=== PATIENT | male | born 1945 | race Caucasian/White ===

== ENCOUNTER 2020-03-26 09:34 | Day surgery (SDC) | payer MEDICARE, BC ==
[~2020-03-26 09:34] MED LIST: Propofol 200 MG/20 ML SDV ONE; Sodium Chloride 0.9% 10 ML Syringe FLUSH PRN
[2020-03-26] MEDS ORDERED: Propofol 200 MG/20 ML SDV ONE (10:06)
[2020-03-26] MEDS: Sodium Chloride 0.9% 1,000 ML IV SCH (10:17)
[2020-03-26] MEDS ORDERED: ePHEDrine 50 MG/ML SDV IV ONE (10:47)
[2020-03-26] MEDS ORDERED: Propofol 200 MG/20 ML SDV IV ONE (10:47)
--- NOTE | 2020-03-26 10:51 | PCM.PN ---
- General Info Date of Service: 03/26/20 - Review of Systems Pulmonary: Reports: No Symptoms Cardiovascular: Reports: No Symptoms Gastrointestinal: Reports: No Symptoms Systems Review Comment:: 74-year-old male referred for screening colonoscopy. He states his last colonoscopy was over 10 years ago. He does think there were a couple of polyps removed at that time. Patient denies any recent changes in bowel pattern or abdominal pain. I have discussed the proposed colonoscopy with the patient. Risks such as but not limited to bleeding and GI injury reviewed. He agrees to proceed. - Patient Data Vitals - Most Recent: Last Vital Signs Temp 97.8 F 03/26/20 09:37 Pulse 57 L 03/26/20 09:37 Resp 16 03/26/20 09:37 BP 150/91 H 03/26/20 09:37 Pulse Ox 97 03/26/20 09:37 Weight - Most Recent: 99.79 kg Lab Results Last 24 Hours: Laboratory Results - last 24 hr 03/25/20 03/26/20 Range/Units 10:00 09:57 POC Glucose 152 H (74-106) mg/dl SARS-CoV-2 RNA (RT-PCR) Cancelled Med Orders - Current: Current Medications Sodium Chloride (Normal Saline) 1,000 mls @ 50 mls/hr IV ASDIRECTED JAC Last Admin: 03/26/20 10:17 Dose: 50 mls/hr Documented by: Sodium Chloride (Saline Flush) 10 ml FLUSH Q8HR PRN PRN Reason: keep vein open Discontinued Medications Propofol (Diprivan 20 Ml) Confirm Administered Dose 400 mg .ROUTE .STK-MED ONE Stop: 03/26/20 08:58 - Exam General: Alert, Oriented Lungs: Normal Respiratory Effort Cardiovascular: Regular Rate GI/Abdominal Exam: Soft Sepsis Event Note - Focused Exam Vital Signs: Vital Signs Temp Pulse Resp BP Pulse Ox 03/26/20 09:37 97.8 F 57 L 16 150/91 H 97 Date Exam was Performed: 03/26/20 Time Exam was Performed: 10:49 - Problem List Review Problem List Initiated/Reviewed/Updated: Yes - My Orders Last 24 Hours: My Active Orders 03/25/20 13:43 Resuscitation Status Routine 03/26/20 Breakfast Nothing Per Oral Diet [DIET] 03/26/20 09:30 Blood Glucose Check, Bedside [RC] UPON Peripheral IV Care [RC] . DIRECTED Sodium Chloride 0.9% [Normal Saline] 1,000 ml IV ASDIRECTED Sodium Chloride 0.9% [Saline Flush] 10 ml FLUSH Q8HR PRN Peripheral IV Insertion Adult [OM.PC] Routine 03/26/20 10:00 Patient to Empty Bladder [RC] ASDIRECTED 03/26/20 10:45 Verify Patient Consent Obtain [RC] ASDIRECTED - Assessment Assessment:: Colon cancer screening - Plan Plan:: Colonoscopy
--- NOTE | 2020-03-26 11:37 | PCM.OPNOTE ---
- General Post-Op/Procedure Note Date of Surgery/Procedure: 03/26/20 Operative Procedure(s): Colonoscopy with Polypectomy and Biopsy Findings: Multiple colon polyps including large sessile polyp at hepatic flexure Pre Op Diagnosis: + Fit test Post-Op Diagnosis: Colon Polyps Anesthesia Technique: MAC Primary Surgeon: Brooks Thakkar Pathology: Colon polyps EBL in mLs: 2 Complications: None Condition: Good
--- NOTE | 2020-03-26 15:24 | OR ---
DATE OF SURGERY: 03/26/2020 SURGEON: Brooks Thakkar MD PREOPERATIVE DIAGNOSIS: Positive FIT test. POSTOPERATIVE DIAGNOSIS: Colon polyps. OPERATION PERFORMED: Colonoscopy with polypectomy and biopsy. INDICATIONS FOR SURGERY: This 74-year-old male comes for colonoscopy. He was recently noted to have a positive FIT test and it has been more than 10 years since his last colonoscopy. FINDINGS: Three polyps were noted on today's exam. There was an 8 mm sessile polyp in the proximal ascending colon, a 5 mm sessile polyp in the mid ascending colon, and a 2 cm irregularly shaped but soft sessile polyp at the level of the hepatic flexure. The colon otherwise appears normal. DESCRIPTION OF PROCEDURE: The patient was taken to the operating room. He was given intravenous sedation and with him in the left lateral decubitus position, digital rectal exam was performed showing no rectal masses. The Olympus colonoscope was inserted into the rectum. Retroflexed examination of the rectal canal is performed. The scope was then carefully advanced under direct visualization through the entire length of the colon until the cecum was reached. Cecal acquisition is confirmed by noting the normal internal cecal anatomy including the appendiceal orifice and ileocecal valve. The light was also noted to transilluminate the abdominal wall in the right lower quadrant. After examining the cecum, the scope was slowly withdrawn and the polyps in the ascending colon were identified. These were removed with cautery snare and retrieved and submitted for pathology. Further withdrawal of the scope identified the large polyp at the hepatic flexure. This was sessile in nature and because of its relatively large size, it was felt that this would require advanced polypectomy techniques to remove this safely. Anticipating the need for this, random biopsies with cold biopsy forceps were taken of this polyp and tattoos are placed in the mucosa of the colon near the location of this large polyp. The scope was continued to be slowly withdrawn re-examining the remaining colonic segments and when the entire colon and rectum had been fully examined, the scope was removed and the patient was taken from the operating room in satisfactory condition. ESTIMATED BLOOD LOSS: 2 mL. COMPLICATIONS: None. PROGNOSIS: Good. /[id number]/MODL
== END 2020-03-26 12:46 | disposition home or self-care (01) ==
LOC: KA.SDS 09:34
PROVIDERS: ATTEND Surgery
DX: D12.2 Benign neoplasm of ascending colon (principal); D12.3 Benign neoplasm of transverse colon; E11.9 Type 2 diabetes mellitus without complications; E78.5 Hyperlipidemia, unspecified; E03.9 Hypothyroidism, unspecified; E55.9 Vitamin D deficiency, unspecified; N52.9 Male erectile dysfunction, unspecified; E78.00 Pure hypercholesterolemia, unspecified; Z79.890 Hormone replacement therapy; Z79.82 Long term (current) use of aspirin; Z79.84 Long term (current) use of oral hypoglycemic drugs; Z98.890 Other specified postprocedural states; Z79.899 Other long term (current) drug therapy
CPT/HCPCS: 00812; 82962; 88305; J2704; J7030

== ENCOUNTER 2021-09-04 12:06 | Observation (INO) | payer MEDICARE, BC ==
[2021-09-04] MEDS ORDERED: Ondansetron 4 MG/2 ML SDV IV PRN (12:27)
[2021-09-04] MEDS: Sodium Chloride 0.9% 1,000 ML IV SCH ×2 (13:06→21:11)
[2021-09-04] MEDS: HYDROmorphone 1 MG/ML Syringe IVPUSH PRN ×2 (13:07→21:22)
[2021-09-04] MEDS ORDERED: Glucagon,Human Recombinant 1 MG Vial IM PRN (13:18)
[2021-09-04] MEDS ORDERED: 50% Dextrose in Water 50 ML Syringe IVPUSH PRN (13:18)
--- NOTE | 2021-09-04 14:07 | CT ---
[id number] CT/CT Abdomen Pelvis WO IV EXAM: CT Abdomen Pelvis WO IV CLINICAL DATA: ACUTE KIDNEY INJURY/LEUKOCYTOSIS. COMPARISON STUDY: None. FINDINGS: Lung bases are clear. The liver, spleen, gallbladder, pancreas, and adrenal glands are unremarkable. Mild bilateral hydronephrosis without obstructing stone or mass identified. The urinary bladder is markedly distended. No bowel obstruction or inflammation. Large amount of retained stool within the colon. No lymphadenopathy, free fluid, or pneumoperitoneum. Scattered changes of spondylosis the spine. No fracture or osseous lesion. IMPRESSION: 1. Mild bilateral hydronephrosis without obstructing stone or mass. This is likely secondary to markedly distended urinary bladder. Catheterization of the patient is unable to void is recommended. Atilio King DO 09/04/21 [id number] Thank you for allowing us to participate in the care of your patient.
[2021-09-04] MEDS: Insulin Aspart 100 Units/ML 3 ML Pen SUBCUT SCH ×2 (18:17→21:12)
[2021-09-04] MEDS ORDERED: Tamsulosin 0.4 MG Cap.ER PO ONE (21:00)
[2021-09-05] MEDS: LEVOTHYROXINE 88 MCG PO SCH (06:48)
[2021-09-05 08:15] LABS: ANION GAP 14.1 mmol/L (5-15); CHLORIDE,CL 101 mmol/L (98-107); SODIUM,NA 138 mmol/L (136-145)
[2021-09-05] MEDS: Tamsulosin 0.4 MG Cap.ER PO SCH (08:29)
[2021-09-05] MEDS: Aspirin 81 MG Tab.EC PO SCH (08:29)
[2021-09-05] MEDS: Insulin Aspart 100 Units/ML 3 ML Pen SUBCUT SCH ×4 (08:29→22:13)
[2021-09-05] MEDS: ROSUVASTATIN 5 MG PO SCH (08:31)
[2021-09-05] MEDS: OMEPRAZOLE 20 MG PO SCH (08:31)
[2021-09-05] MEDS: Sodium Chloride 0.9% 1,000 ML IV SCH (10:07)
--- NOTE | 2021-09-05 12:55 | PCM.PN ---
- General Info Date of Service: 09/05/21 Subjective Update: Mr. Turcios reports feeling significant improvement in overall status and abdominal pain since admission. Tolerated breakfast well this morning. No antiemetics needed today. Denies emesis since admission. Continues to deny any cardiopulmonary symptoms. - Patient Data Vitals - Most Recent: Last Vital Signs Temp 36.4 C 09/05/21 11:00 Pulse 60 09/05/21 11:00 Resp 19 09/05/21 11:00 BP 127/79 09/05/21 11:00 Pulse Ox 94 L 09/05/21 05:50 Weight - Most Recent: 80.195 kg I&O - Last 24 Hours: Intake & Output 09/04/21 09/05/21 09/05/21 22:59 06:59 14:59 Intake Total 200 2570 Output Total 1800 1550 Balance -1600 1020 Lab Results Last 24 Hours: Laboratory Results - last 24 hr 09/04/21 09/04/21 09/04/21 Range/Units 12:56 13:15 15:00 WBC (5.00-10.00) 10^3/uL RBC (4.50-6.00) 10^6/uL Hgb (13.0-17.0) g/dL Hct (40.0-52.0) % MCV (82.0-92.0) fL MCH (27.0-31.0) pg MCHC (32.0-36.0) g/dL RDW (11.5-14.5) % Plt Count (150-400) 10^3/uL MPV (7.4-10.4) fL Immature Gran % (Auto) (0.0-5.0) % Neut % (Auto) (50.0-70.0) % Lymph % (Auto) (20.0-40.0) % [place] % (Auto) (2.0-8.0) % Eos % (Auto) (1.0-3.0) % Baso % (Auto) (0.0-1.0) % Neut # (Auto) (2.50-7.00) 10^3/uL Lymph # (Auto) (1.00-4.00) 10^3/uL [place] # (Auto) (0.10-0.80) 10^3/uL Eos # (Auto) (0.10-0.30) 10^3/uL Baso # (Auto) (0.00-0.10) 10^3/uL Immature Gran # (Auto) (0.00-0.50) 10^3/uL Sodium (136-145) mmol/L Potassium (3.5-5.1) mmol/L Chloride (98-107) mmol/L Carbon Dioxide (21.0-32.0) mmol/L Anion Gap (5-15) mmol/L BUN (7-18) mg/dL Creatinine (0.51-1.17) mg/dL Est Cr Clr Drug Dosing mL/min Estimated GFR (MDRD) mL/min Glucose (70-140) mg/dL POC Glucose (70-140) mg/dL Lactic Acid 1.9 (0.4-2.0) mmol/L Calcium (8.7-10.3) mg/dL Specimen Type Urinblad Urine Color Yellow (YELLOW) Urine Appearance Clear (CLEAR) Urine pH 5.5 (5.0-9.0) Ur Specific [place] 1.015 (1.005-1.030) Urine Protein Negative (NEGATIVE) mg/dL Urine Glucose (UA) >=1000 H (NEGATIVE) mg/dL Urine Ketones Trace H (NEGATIVE) mg/dL Urine Occult Blood Large H (NEGATIVE) Urine Nitrite Negative (NEGATIVE) Urine Bilirubin Negative (NEGATIVE) Urine Urobilinogen 0.2 (0.2-1.0) E.U./dL Ur Leukocyte Esterase Negative (NEGATIVE) Urine RBC 75-100 H (0-5) /HPF Urine WBC 0-5 (0-5) /HPF Urine Bacteria Rare (NONE TO FEW) /HPF Urine Mucus Rare H (NEGATIVE) /LPF SARS CoV-2 RNA Rapid MICHAEL Positive H (NEGATIVE) 09/04/21 09/04/21 09/05/21 Range/Units 18:15 21:03 07:24 WBC 7.39 (5.00-10.00) 10^3/uL RBC 3.83 L (4.50-6.00) 10^6/uL Hgb 11.6 L D (13.0-17.0) g/dL Hct 33.8 L (40.0-52.0) % MCV 88.3 (82.0-92.0) fL MCH 30.3 (27.0-31.0) pg MCHC 34.3 (32.0-36.0) g/dL RDW 13.0 (11.5-14.5) % Plt Count 157 (150-400) 10^3/uL MPV 9.7 (7.4-10.4) fL Immature Gran % (Auto) 0.1 (0.0-5.0) % Neut % (Auto) 73.3 H (50.0-70.0) % Lymph % (Auto) 14.5 L (20.0-40.0) % [place] % (Auto) 8.9 H (2.0-8.0) % Eos % (Auto) 2.7 (1.0-3.0) % Baso % (Auto) 0.5 (0.0-1.0) % Neut # (Auto) 5.41 (2.50-7.00) 10^3/uL Lymph # (Auto) 1.07 (1.00-4.00) 10^3/uL [place] # (Auto) 0.66 (0.10-0.80) 10^3/uL Eos # (Auto) 0.20 (0.10-0.30) 10^3/uL Baso # (Auto) 0.04 (0.00-0.10) 10^3/uL Immature Gran # (Auto) 0.01 (0.00-0.50) 10^3/uL Sodium (136-145) mmol/L Potassium (3.5-5.1) mmol/L Chloride (98-107) mmol/L Carbon Dioxide (21.0-32.0) mmol/L Anion Gap (5-15) mmol/L BUN (7-18) mg/dL Creatinine (0.51-1.17) mg/dL Est Cr Clr Drug Dosing mL/min Estimated GFR (MDRD) mL/min Glucose (70-140) mg/dL POC Glucose 177 H 214 H (70-140) mg/dL Lactic Acid (0.4-2.0) mmol/L Calcium (8.7-10.3) mg/dL Specimen Type Urine Color (YELLOW) Urine Appearance (CLEAR) Urine pH (5.0-9.0) Ur Specific [place] (1.005-1.030) Urine Protein (NEGATIVE) mg/dL Urine Glucose (UA) (NEGATIVE) mg/dL Urine Ketones (NEGATIVE) mg/dL Urine Occult Blood (NEGATIVE) Urine Nitrite (NEGATIVE) Urine Bilirubin (NEGATIVE) Urine Urobilinogen (0.2-1.0) E.U./dL Ur Leukocyte Esterase (NEGATIVE) Urine RBC (0-5) /HPF Urine WBC (0-5) /HPF Urine Bacteria (NONE TO FEW) /HPF Urine Mucus (NEGATIVE) /LPF SARS CoV-2 RNA Rapid MICHAEL (NEGATIVE) 09/05/21 09/05/21 Range/Units 07:24 08:06 WBC (5.00-10.00) 10^3/uL RBC (4.50-6.00) 10^6/uL Hgb (13.0-17.0) g/dL Hct (40.0-52.0) % MCV (82.0-92.0) fL MCH (27.0-31.0) pg MCHC (32.0-36.0) g/dL RDW (11.5-14.5) % Plt Count (150-400) 10^3/uL MPV (7.4-10.4) fL Immature Gran % (Auto) (0.0-5.0) % Neut % (Auto) (50.0-70.0) % Lymph % (Auto) (20.0-40.0) % [place] % (Auto) (2.0-8.0) % Eos % (Auto) (1.0-3.0) % Baso % (Auto) (0.0-1.0) % Neut # (Auto) (2.50-7.00) 10^3/uL Lymph # (Auto) (1.00-4.00) 10^3/uL [place] # (Auto) (0.10-0.80) 10^3/uL Eos # (Auto) (0.10-0.30) 10^3/uL Baso # (Auto) (0.00-0.10) 10^3/uL Immature Gran # (Auto) (0.00-0.50) 10^3/uL Sodium 138 (136-145) mmol/L Potassium 3.5 (3.5-5.1) mmol/L Chloride 101 (98-107) mmol/L Carbon Dioxide 26.4 (21.0-32.0) mmol/L Anion Gap 14.1 (5-15) mmol/L BUN 13 (7-18) mg/dL Creatinine 0.63 (0.51-1.17) mg/dL Est Cr Clr Drug Dosing 107.83 mL/min Estimated GFR (MDRD) > 60 mL/min Glucose 170 H (70-140) mg/dL POC Glucose 158 H (70-140) mg/dL Lactic Acid (0.4-2.0) mmol/L Calcium 8.4 L (8.7-10.3) mg/dL Specimen Type Urine Color (YELLOW) Urine Appearance (CLEAR) Urine pH (5.0-9.0) Ur Specific [place] (1.005-1.030) Urine Protein (NEGATIVE) mg/dL Urine Glucose (UA) (NEGATIVE) mg/dL Urine Ketones (NEGATIVE) mg/dL Urine Occult Blood (NEGATIVE) Urine Nitrite (NEGATIVE) Urine Bilirubin (NEGATIVE) Urine Urobilinogen (0.2-1.0) E.U./dL Ur Leukocyte Esterase (NEGATIVE) Urine RBC (0-5) /HPF Urine WBC (0-5) /HPF Urine Bacteria (NONE TO FEW) /HPF Urine Mucus (NEGATIVE) /LPF SARS CoV-2 RNA Rapid MICHAEL (NEGATIVE) Med Orders - Current: Current Medications Aspirin (Aspirin 81 Mg Tab.Ec) 81 mg PO DAILY [facility] Last Admin: 09/05/21 08:29 Dose: 81 mg Documented by: Dextrose/Water (50% Dextrose In Water 50 Ml Syringe) 50 ml IVPUSH ASDIRECTED PRN PRN Reason: Hypoglycemia Glucagon (Glucagon,Human Recombinant 1 Mg Vial) 1 mg IM ASDIRECTED PRN PRN Reason: Hypoglycemia Hydromorphone HCl (Hydromorphone 1 Mg/Ml Syringe) 0.5 mg IVPUSH Q2H PRN PRN Reason: Pain (severe 7-10) Last Admin: 09/04/21 21:22 Dose: 0.5 mg Documented by: Sodium Chloride (Normal Saline) 1,000 mls @ 150 mls/hr IV ASDIRECTED [facility] Last Admin: 09/05/21 10:07 Dose: 150 mls/hr Documented by: Insulin Aspart (Insulin Aspart 100 Units/Ml 3 Ml Pen) 0 unit SUBCUT WITHMEALSANDBED [facility]; Protocol Last Admin: 09/05/21 12:29 Dose: 1 unit Documented by: Levothyroxine 88 (Mcg TabletPtom) 88 mcg PO ACBREAKFAST [facility] Last Admin: 09/05/21 06:48 Dose: 88 mcg Documented by: Rosuvastatin 5 Mg (TabletPtom) 5 mg PO DAILY [facility] Last Admin: 09/05/21 08:31 Dose: 5 mg Documented by: Omeprazol 20 Mg Cap. (Cr Ptom) 20 mg PO DAILY [facility] Last Admin: 09/05/21 08:31 Dose: 20 mg Documented by: Ondansetron HCl (Ondansetron 4 Mg/2 Ml Sdv) 4 mg IV Q6H PRN PRN Reason: Nausea/Vomiting Tamsulosin HCl (Tamsulosin 0.4 Mg Cap.Er) 0.4 mg PO PCBREAKFAST [facility] Last Admin: 09/05/21 08:29 Dose: 0.4 mg Documented by: Discontinued Medications Tamsulosin HCl (Tamsulosin 0.4 Mg Cap.Er) 0.4 mg PO ONETIME ONE Stop: 09/04/21 21:01 Last Admin: 09/04/21 21:11 Dose: 0.4 mg Documented by: - Exam Urinary Catheter Total Time: 0Days 17Hours Physical Findings Comments:: GENERAL: Elderly white male lying in hospital bed in no acute distress. HEENT: Normocephalic, atraumatic. Conjunctiva clear. Nares patent without discharge. Mucous membranes moist. NECK: Supple, no masses. CV: Regular rate and rhythm, no murmurs, rubs, or gallops. 2+ radial pulses. PULMONARY: Normal effort, faint rhonchi in the bases, no wheezes or rales. ABDOMEN: Positive bowel sounds, soft, mild tenderness to palpation in the epigastric region, nondistended. EXTREMITIES: No edema, cyanosis, or clubbing. MUSCULOSKELETAL: Moves all extremities well. NEUROLOGICAL: No obvious deficits. DERMATOLOGIC: No rashes or suspicious lesions in exposed areas. PSYCHIATRIC: Alert, interactive, appropriate affect. Catheter draining clear-yellow urine. - Patient Data Lab Results Last 24 hrs: Laboratory Results - last 24 hr 09/04/21 09/04/21 09/04/21 Range/Units 12:56 13:15 15:00 WBC (5.00-10.00) 10^3/uL RBC (4.50-6.00) 10^6/uL Hgb (13.0-17.0) g/dL Hct (40.0-52.0) % MCV (82.0-92.0) fL MCH (27.0-31.0) pg MCHC (32.0-36.0) g/dL RDW (11.5-14.5) % Plt Count (150-400) 10^3/uL MPV (7.4-10.4) fL Immature Gran % (Auto) (0.0-5.0) % Neut % (Auto) (50.0-70.0) % Lymph % (Auto) (20.0-40.0) % [place] % (Auto) (2.0-8.0) % Eos % (Auto) (1.0-3.0) % Baso % (Auto) (0.0-1.0) % Neut # (Auto) (2.50-7.00) 10^3/uL Lymph # (Auto) (1.00-4.00) 10^3/uL [place] # (Auto) (0.10-0.80) 10^3/uL Eos # (Auto) (0.10-0.30) 10^3/uL Baso # (Auto) (0.00-0.10) 10^3/uL Immature Gran # (Auto) (0.00-0.50) 10^3/uL Sodium (136-145) mmol/L Potassium (3.5-5.1) mmol/L Chloride (98-107) mmol/L Carbon Dioxide (21.0-32.0) mmol/L Anion Gap (5-15) mmol/L BUN (7-18) mg/dL Creatinine (0.51-1.17) mg/dL Est Cr Clr Drug Dosing mL/min Estimated GFR (MDRD) mL/min Glucose (70-140) mg/dL POC Glucose (70-140) mg/dL Lactic Acid 1.9 (0.4-2.0) mmol/L Calcium (8.7-10.3) mg/dL Specimen Type Urinblad Urine Color Yellow (YELLOW) Urine Appearance Clear (CLEAR) Urine pH 5.5 (5.0-9.0) Ur Specific [place] 1.015 (1.005-1.030) Urine Protein Negative (NEGATIVE) mg/dL Urine Glucose (UA) >=1000 H (NEGATIVE) mg/dL Urine Ketones Trace H (NEGATIVE) mg/dL Urine Occult Blood Large H (NEGATIVE) Urine Nitrite Negative (NEGATIVE) Urine Bilirubin Negative (NEGATIVE) Urine Urobilinogen 0.2 (0.2-1.0) E.U./dL Ur Leukocyte Esterase Negative (NEGATIVE) Urine RBC 75-100 H (0-5) /HPF Urine WBC 0-5 (0-5) /HPF Urine Bacteria Rare (NONE TO FEW) /HPF Urine Mucus Rare H (NEGATIVE) /LPF SARS CoV-2 RNA Rapid MICHAEL Positive H (NEGATIVE) 09/04/21 09/04/21 09/05/21 Range/Units 18:15 21:03 07:24 WBC 7.39 (5.00-10.00) 10^3/uL RBC 3.83 L (4.50-6.00) 10^6/uL Hgb 11.6 L D (13.0-17.0) g/dL Hct 33.8 L (40.0-52.0) % MCV 88.3 (82.0-92.0) fL MCH 30.3 (27.0-31.0) pg MCHC 34.3 (32.0-36.0) g/dL RDW 13.0 (11.5-14.5) % Plt Count 157 (150-400) 10^3/uL MPV 9.7 (7.4-10.4) fL Immature Gran % (Auto) 0.1 (0.0-5.0) % Neut % (Auto) 73.3 H (50.0-70.0) % Lymph % (Auto) 14.5 L (20.0-40.0) % [place] % (Auto) 8.9 H (2.0-8.0) % Eos % (Auto) 2.7 (1.0-3.0) % Baso % (Auto) 0.5 (0.0-1.0) % Neut # (Auto) 5.41 (2.50-7.00) 10^3/uL Lymph # (Auto) 1.07 (1.00-4.00) 10^3/uL [place] # (Auto) 0.66 (0.10-0.80) 10^3/uL Eos # (Auto) 0.20 (0.10-0.30) 10^3/uL Baso # (Auto) 0.04 (0.00-0.10) 10^3/uL Immature Gran # (Auto) 0.01 (0.00-0.50) 10^3/uL Sodium (136-145) mmol/L Potassium (3.5-5.1) mmol/L Chloride (98-107) mmol/L Carbon Dioxide (21.0-32.0) mmol/L Anion Gap (5-15) mmol/L BUN (7-18) mg/dL Creatinine (0.51-1.17) mg/dL Est Cr Clr Drug Dosing mL/min Estimated GFR (MDRD) mL/min Glucose (70-140) mg/dL POC Glucose 177 H 214 H (70-140) mg/dL Lactic Acid (0.4-2.0) mmol/L Calcium (8.7-10.3) mg/dL Specimen Type Urine Color (YELLOW) Urine Appearance (CLEAR) Urine pH (5.0-9.0) Ur Specific [place] (1.005-1.030) Urine Protein (NEGATIVE) mg/dL Urine Glucose (UA) (NEGATIVE) mg/dL Urine Ketones (NEGATIVE) mg/dL Urine Occult Blood (NEGATIVE) Urine Nitrite (NEGATIVE) Urine Bilirubin (NEGATIVE) Urine Urobilinogen (0.2-1.0) E.U./dL Ur Leukocyte Esterase (NEGATIVE) Urine RBC (0-5) /HPF Urine WBC (0-5) /HPF Urine Bacteria (NONE TO FEW) /HPF Urine Mucus (NEGATIVE) /LPF SARS CoV-2 RNA Rapid MICHAEL (NEGATIVE) 09/05/21 09/05/21 Range/Units 07:24 08:06 WBC (5.00-10.00) 10^3/uL RBC (4.50-6.00) 10^6/uL Hgb (13.0-17.0) g/dL Hct (40.0-52.0) % MCV (82.0-92.0) fL MCH (27.0-31.0) pg MCHC (32.0-36.0) g/dL RDW (11.5-14.5) % Plt Count (150-400) 10^3/uL MPV (7.4-10.4) fL Immature Gran % (Auto) (0.0-5.0) % Neut % (Auto) (50.0-70.0) % Lymph % (Auto) (20.0-40.0) % [place] % (Auto) (2.0-8.0) % Eos % (Auto) (1.0-3.0) % Baso % (Auto) (0.0-1.0) % Neut # (Auto) (2.50-7.00) 10^3/uL Lymph # (Auto) (1.00-4.00) 10^3/uL [place] # (Auto) (0.10-0.80) 10^3/uL Eos # (Auto) (0.10-0.30) 10^3/uL Baso # (Auto) (0.00-0.10) 10^3/uL Immature Gran # (Auto) (0.00-0.50) 10^3/uL Sodium 138 (136-145) mmol/L Potassium 3.5 (3.5-5.1) mmol/L Chloride 101 (98-107) mmol/L Carbon Dioxide 26.4 (21.0-32.0) mmol/L Anion Gap 14.1 (5-15) mmol/L BUN 13 (7-18) mg/dL Creatinine 0.63 (0.51-1.17) mg/dL Est Cr Clr Drug Dosing 107.83 mL/min Estimated GFR (MDRD) > 60 mL/min Glucose 170 H (70-140) mg/dL POC Glucose 158 H (70-140) mg/dL Lactic Acid (0.4-2.0) mmol/L Calcium 8.4 L (8.7-10.3) mg/dL Specimen Type Urine Color (YELLOW) Urine Appearance (CLEAR) Urine pH (5.0-9.0) Ur Specific [place] (1.005-1.030) Urine Protein (NEGATIVE) mg/dL Urine Glucose (UA) (NEGATIVE) mg/dL Urine Ketones (NEGATIVE) mg/dL Urine Occult Blood (NEGATIVE) Urine Nitrite (NEGATIVE) Urine Bilirubin (NEGATIVE) Urine Urobilinogen (0.2-1.0) E.U./dL Ur Leukocyte Esterase (NEGATIVE) Urine RBC (0-5) /HPF Urine WBC (0-5) /HPF Urine Bacteria (NONE TO FEW) /HPF Urine Mucus (NEGATIVE) /LPF SARS CoV-2 RNA Rapid MICHAEL (NEGATIVE) Result Diagrams: 09/05/21 07:24 09/05/21 07:24 Sepsis Event Note - Evaluation Sepsis Screening Result: No Definite Risk - Focused Exam Vital Signs: Vital Signs Temp Pulse Resp BP Pulse Ox 09/05/21 11:00 36.4 C 60 19 127/79 09/05/21 05:50 63 20 128/72 94 L 09/05/21 01:40 36.9 C 64 16 102/62 94 L - Problem List Review Problem List Initiated/Reviewed/Updated: Yes - My Orders Last 24 Hours: My Active Orders 09/04/21 12:27 Patient Status [ADT] Routine Oxygen Therapy [RC] .PRN Up With Assistance [RC] DAILY Vital Signs [RC] ,,11,15,, Ondansetron [Zofran] 4 mg IV Q6H PRN Resuscitation Status Routine 09/04/21 12:30 Sodium Chloride 0.9% [Normal Saline] 1,000 ml IV ASDIRECTED 09/04/21 12:40 HYDROmorphone [Dilaudid] 0.5 mg IVPUSH Q2H PRN 09/04/21 12:50 CULTURE BLOOD [BC] Routine 09/04/21 12:56 CULTURE BLOOD [BC] Routine 09/04/21 13:18 Blood Glucose Check, Bedside [RC] WITHMEALSANDBED Dextrose 50% in Water 50 ml IVPUSH ASDIRECTED PRN Glucagon,Human Recombinant [GlucaGen] 1 mg IM ASDIRECTED PRN 09/04/21 14:15 Insert Urinary Catheter [OM.PC] Q24H 09/04/21 14:18 Urinary Catheter Assessment [RC] 09/04/21 Dinner Regular Diet [DIET] Insulin Aspart [NovoLOG] See Protocol SUBCUT WITHMEALSANDBED 09/05/21 07:30 Levothyroxine [Synthroid] 88 mcg PO ACBREAKFAST 09/05/21 09:00 Aspirin [Halfprin] 81 mg PO DAILY Omeprazole [Omeprazole] 20 mg PO DAILY Rosuvastatin 5 mg PO DAILY Tamsulosin [Flomax] 0.4 mg PO PCBREAKFAST Renew/Continue Urinary Catheter [OM.PC] DAILY 09/06/21 09:00 Renew/Continue Urinary Catheter [OM.PC] DAILY 09/07/21 09:00 Renew/Continue Urinary Catheter [OM.PC] DAILY - Plan Plan:: HPI summary: 75yoM with a history of recently diagnosed pancreatic cancer as well as history of uncontrolled DMT2 who underwent EGD/EUS with pancreatic biopsy on 09/02/21 and has subsequently noted increasing abdominal pain, nausea, and urinary difficulty. Labs obtained in clinic notable for leukocytosis, evidence of KEENAN, and UA without infectious concerns. NS 1L given along with ondansetron 4mg in clinic; despite this, he continued to feel generally poor and after discussion of management options, agreed to admission for further workup and management. Hospital course: 09/04/21: Admission COVID antigen test positive. CT abdomen/pelvis revealed hydronephrosis and markedly distended bladder. Urinary catheter placed with 1500cc output and excellent improvement in patient abdominal pain and nausea. Tamsulosin started. 09/05/21: Admission procalcitonin resulted at 0.07 (low risk). Leukocytosis and KEENAN completely resolved. Ongoing excellent improvement in abdominal pain and nausea. Catheter draining. Hospitalization problems and plan: # Acute urinary retention: Likely due to anesthesia and presumed underlying BPH. # BPH # Postrenal acute kidney injury, resolved # Hydronephrosis # Nausea, improved # Abdominal pain, resolved - Continue with urinary catheter, but clamp and begin bladder training with attempt to consider trial without catheter tomorrow - Continue tamsulosin 0.4mg daily - Discontinue IVF - Continue ondansetron 4mg q6h prn nausea # Leukocytosis, resolved: Procalcitonin low risk. CT abdomen/pelvis and UA without evidence of infection. Likely stress-induced in the setting of hydronephrosis and acute urinary retention. - Blood culture surveillance # Constipation - Start Miralax 17g daily # COVID-19 infection: Minimally symptomatic. S/p Moderna vaccine x3 with last dose 08/22/21. - Monoclonal antibody infusion today; see attestation below # Pancreatic adenocarcinoma - Coordinate with medical oncology team regarding need for delay in PET scan and appointment with Dr. Corona due to COVID isolation until 09/14/21. # DMT2: 08/07/21 A1c 8.9%, improved from 02/24/21 9.2%. - BG QIDACHS - Restart home metformin 1000mg BID - Continue insulin aspart low dose sliding scale Chronic, stable conditions: # GERD: Continue omeprazole 20mg BID. # Hypothyroidism: 08/07/21 TSH 5.402. Continue levothyroxine 88mcg daily. # HLD: 02/24/21 lipid panel TC 113/LDL 64/HLD 39. Continue rosuvastatin 5mg daily, ASA 81mg daily. Hospitalization details: # FEN: D/C IVF. Electrolytes normal. Regular diet. # PPX: Will initiate DVT ppx if staying past tomorrow. # Code status: FULL code. # Emergency contact: , Remy, who will be updated by the patient. # Disposition: Continue observation status. Anticipate discharge to home tomorrow. [facility] COVID-19 Antibody Infusion Ordering Note for Administration at [facility] Use: Treatment: This EUA is for the use of the unapproved product casirivimab/imdevimab or bamlanivimab/estevimab for the treatment of mild to moderate COVID-19 in adult and pediatric patients (12 years of age and older weighing at least 40 kg) with positive results of direct SARS-CoV-2 viral testing, and who are at high risk for progression to severe COVID-19, including hospitalization or . High risk status: Defined as patients who meet at least one of the following criteria: [x] =65 years of age [x] BMI >25 or if age 12-17, have a BMI =85th percentile for their age and g richard based on CDC growth charts [ ] [ ] Chronic kidney disease [ ] Diabetes [ ] Immunosuppressive disease or receiving immunosuppressive treatment [x] Cardiovascular disease (including congenital heart disease) or hypertension [ ] Chronic lung disease (for example, chronic obstructive pulmonary disease, asthma [[id number]], interstitial lung disease, cystic fibrosis and pulmonary hypertension) [ ] Sickle cell disease [ ] Neurodevelopmental disorders (for example, cerebral palsy) or other conditions that confer medical complexity (for example, genetic or metabolic syndromes and severe congenital anomalies) [ ] Having a medical-related technological dependence, for example, tracheostomy, gastrostomy, or positive pressure ventilation (not related to COVID-19) EUA Exclusions: Casirivimab/imdevimab or bamlanivimab/estevimab are not authorized for use in patients who are hospitalized due to COVID-19 OR who require oxygen therapy due to COVID-19 or who require an increase in baseline oxygen flow rate due to COVID-19 in those on chronic oxygen therapy due to underlying [id number] related comorbidity. [x] No known exclusions. Will check oxygen saturation at infusion appointment to ensure it is not <90%. [place] Exclusions: [ ] Symptom onset greater than 10 days; Date of COVID symptom onset: 09/04/21 [ ] Date of COVID-19 test greater than 8 days; Date of COVID test: 09/04/21 [ ]Previously received monoclonal antibody therapy to treat COVID-19 in the last 90 days Checklist: [x] Appointment with patient completed (may have been in clinic with precautions if testing was obtained while at appointment OR via telemedicine appointment) [x] Document the attestation in appointment note or this note [x] Call or have clinic staff call [facility] and talk to Candida Payton or Liliana Hay to schedule infusion [x] Sign [facility] "COVID-19 Monoclonal Antibody Order Set" and select infusion based discussion with hospital [x] [facility] "Initiation of Casirivimab/imdevimab Treatment" or "Initiation of Bamlanivimab/estevimab Treatment" or "Sotrovimab Treatment" form [x] Have staff send 1) Demographics page, 2) Copy of COVID-19 test, 3) "COVID-19 Monoclonal Antibody Order Set", and 4) "Initiation of Casirivimab/imdevimab Treatment" or "Initiation of Bamlanivimab/estevimab Treatment" or "Sotrovimab Treatment" form [x] Consider ordering home monitoring program: Deferred due to hospital observation status Patient was offered a copy of the Fact Sheet for Patients, Parents, and Caregivers. https://www.fda.gov/media/860243/download I reviewed the following information from the Fact Sheet for Patients, Parents and Caregivers: - FDA has authorized the emergency use of casirivimab/imdevimab or bamlanivimab/estevimab for the treatment of mild to moderate COVID-19 in adults and pediatric patients with positive results of direct SARS-CoV-2 viral testing who are 12 years of age and older weighing at least 40 kg, and who are at high risk for progressing to severe COVID-19 and/or hospitalization. The drug has not fully been FDA reviewed or approved. - The significant known and potential risks and benefits of casirivimab/im devimab or bamlanivimab/estevimab, and the extent to which such potential risks and benefits, are unknown. The drug may cause liver abnormalities and infusion related side effects. - The patient or parent/caregiver has the option to accept or refuse casirivimab/imdevimab or bamlanivimab/estevimab. - Information on available alternative treatments and the risks and benefits of those alternatives, including clinical trials. - Patients treated with casirivimab/imdevimab or bamlanivimab/estevimab should continue to self-isolate and use infection control measures (e.g. wear mask, isolate, social distance, avoid sharing personal items, clean and disinfect "high touch" surfaces, and frequent handwashing) according to CDC Guidelines. - Patients treated with casirivimab/imdevimab or bamlanivimab/estevimab should defer COVID-19 vaccination for at least 90 days after receiving.
[2021-09-05] MEDS ORDERED: Acetaminophen 325 MG Tab PO PRN (12:59)
[2021-09-05] MEDS: Polyethylene Glycol 3350 Powder 17 GM Packet PO SCH (14:01)
[2021-09-05] MEDS ORDERED: diphenhydrAMINE 50 MG/ML SDV IVPUSH PRN (14:26)
[2021-09-05] MEDS ORDERED: Famotidine 20 MG/2 ML SDV IVPUSH PRN (14:26)
[2021-09-05] MEDS ORDERED: EPINEPHrine 1:10,000 1 MG/10 ML Syringe IM PRN (14:26)
[2021-09-05] MEDS ORDERED: methylPREDNISolone Sodium Succinate 125 MG/2 ML SDV IVPUSH PRN (14:26)
[2021-09-05] MEDS ORDERED: Sodium Chloride 0.9% 10 ML Syringe FLUSH SCH (14:30)
[2021-09-05] MEDS: metFORMIN 500 MG Tab PO SCH (18:07)
[2021-09-06] MEDS: LEVOTHYROXINE 88 MCG PO SCH (07:30)
[2021-09-06] MEDS: ROSUVASTATIN 5 MG PO SCH (08:14)
[2021-09-06] MEDS: OMEPRAZOLE 20 MG PO SCH (08:14)
[2021-09-06] MEDS: Tamsulosin 0.4 MG Cap.ER PO SCH (08:15)
[2021-09-06] MEDS: metFORMIN 500 MG Tab PO SCH (08:15)
[2021-09-06] MEDS: Polyethylene Glycol 3350 Powder 17 GM Packet PO SCH (08:16)
[2021-09-06] MEDS: Aspirin 81 MG Tab.EC PO SCH (08:16)
[2021-09-06] MEDS: Insulin Aspart 100 Units/ML 3 ML Pen SUBCUT SCH ×2 (08:17→12:00)
--- NOTE | 2021-09-06 11:55 | PCM.DCSUM1 ---
Discharge Summary - Discharge Data Discharge Date: 09/06/21 Discharge Disposition: Home, Self-Care 01 Condition: Good - Referral to Home Health Primary Care Physician: Gissel Epps MD - Discharge Diagnosis/Problem(s) (1) Urinary retention SNOMED Code(s): 355482433 ICD Code: R33.9 - RETENTION OF URINE, UNSPECIFIED Status: Acute (2) Acute kidney injury SNOMED Code(s): 73525094, 33420142 ICD Code: N17.9 - ACUTE KIDNEY FAILURE, UNSPECIFIED Status: Acute (3) COVID-19 SNOMED Code(s): 463530124 ICD Code: U07.1 - COVID-19 Status: Acute (4) Pancreatic cancer SNOMED Code(s): 961904051 ICD Code: C25.9 - MALIGNANT NEOPLASM OF PANCREAS, UNSPECIFIED Status: Acute (5) Hydronephrosis SNOMED Code(s): 21437507 ICD Code: N13.30 - UNSPECIFIED HYDRONEPHROSIS Status: Acute - Patient Summary/Data Hospital Course: Date of admission: 09/04/21 Date of discharge: 09/06/21 Admission diagnoses: # leukocytosis # abdominal pain # nausea # KEENAN # Pancreatic adenocarcinoma Discharge diagnoses: # COVID 19 infection- date of positive 09/04/21 # Acute urinary retention # Hydronephrosis # Pancreatic adenocarcinoma # BPH # nausea, resolved # Leukocytosis, resolved # KEENAN (postrenal) Resolved Hospital course: Gee Turcios is a 75yr male with a recent history of newly diagnosed pancreatic cancer and history of DM presented to the [facility] with complaints of Nausea/vomiting, Abdominal Pain (Lower), and Incontinence. Patient recently underwent EGD/EUS with pancreatic mass biopsy on 09/02/21. Since that time, he had been experiencingabdominal cramping, nausea, and difficulty urinating with some incontinence of urine. Labs obtained in the clinic notable for leukocytosis, evidence of KEENAN, and Urinalysis without infectious concerns. He was given 1L NS and zofran and continued to feel poor. Admission COVID test was positive. CT abdomen and pelvis showed hydronephrosis and markedly distended bladder. Urinary catheter placed with 1500 mL output with excellent in improvement in abdominal pain and nausea. acute urinary retention strongly felt to be related to anesthesia and likely BPH. 09/05/21- admission procalcitonin returned at 0.7 (low risk). leukocytosis and KEENAN resolved completely. ongoing excellent improvement in abdominal pain and nausea. Monoclonal antibody infusion given for COVID-19 infection. indwelling catheter with good urine output. started on tamsulosin. catheter clamping for bladder training 09/06/21- Patient with no further complaints of abdominal pain or nausea. Indwelling catheter removed for voiding trial prior to anticipated discharge. Patient unable to void despite urinary urgency with a bladder scan for 700ml of urine. indwelling catheter replaced with 650 CC urine out. Disposition/follow-up: - patient discharged home with indwelling catheter in placed. catheter cares reviewed with patient by nursing staff - Remain in isolation for 10 days from date (09/04/21) of positive COVID-19 test - PET scan originally scheduled for 09/09/21 has already been rescheduled to 09/17/21 at 1015 d/t current COVID infection. - Telephone call follow-up/touch base next week - Plan for outpatient voiding trial at [facility] Wednesday09/09/21 with [address] precautions in [address] - follow-up if any concerns arise including return or worsening of nausea, abdominal pain or onset of fevers. - Patient will call if any catheter care/maintenance questions or concerns arise. Medication changes at discharge: - start tamsulosin 0.4mg PO daily - continue additional home medications - Patient Instructions Diet: Usual Diet as Tolerated Showering/Bathing: May Shower Notify Provider of: Fever, Increased Pain, Nausea and/or Vomiting - Discharge Plan *PRESCRIPTION DRUG MONITORING PROGRAM REVIEWED*: Not Applicable *COPY OF PRESCRIPTION DRUG MONITORING REPORT IN PATIENT SAMEER: Not Applicable Prescriptions/Med Rec: RX: Tamsulosin [Flomax] 0.4 mg PO PCBREAKFAST #30 cap.er Home Medications: Home Meds RX: Aspirin [Adult Low Dose Aspirin EC] 81 mg PO DAILY 03/25/20 [History] RX: Levothyroxine [Synthroid] 88 mcg PO ACBREAKFAST 03/25/20 [History] RX: Rosuvastatin [Crestor] 5 mg PO DAILY 03/25/20 [History] RX: metFORMIN [Glucophage] 1,000 mg PO BIDMEALS 03/25/20 [History] RX: Omeprazole 20 mg PO DAILY 09/04/21 [History] RX: Tamsulosin [Flomax] 0.4 mg PO PCBREAKFAST #30 cap.er 09/06/21 [Rx] Oxygen Therapy Mode: Room Air Referrals: Gissel Epps MD [Primary Care Provider] - - Discharge Summary/Plan Comment DC Time >30 min.: No Total # of Minutes for Discharge Time: 25 - General Info Date of Service: 09/06/21 - Review of Systems General: Denies: Fever, Weakness, Fatigue, Malaise, Chills HEENT: Reports: No Symptoms Pulmonary: Denies: Shortness of Breath, Cough, Sputum, Wheezing Cardiovascular: Denies: Chest Pain, Palpitations, Edema Gastrointestinal: Reports: Other (good BM this morning ). Denies: Abdominal Pain, Constipation, Diarrhea, Nausea, Vomiting Genitourinary: Reports: Retention, Other (indwelling catheter in place) Musculoskeletal: Reports: No Symptoms Skin: Reports: No Symptoms Neurological: Reports: No Symptoms Psychiatric: Reports: No Symptoms - Patient Data Vitals - Most Recent: Last Vital Signs Temp 97.3 F 09/06/21 07:00 Pulse 62 09/06/21 07:00 Resp 16 09/06/21 07:00 BP 152/96 H 09/06/21 07:00 Pulse Ox 95 09/06/21 07:00 Weight - Most Recent: 176 lb 12.8 oz I&O - Last 24 hours: Intake & Output 09/05/21 09/06/21 09/06/21 22:59 06:59 14:59 Intake Total 600 500 Output Total 3700 1050 Balance -3100 -550 Lab Results - Last 24 hrs: Laboratory Results - last 24 hr 09/05/21 09/05/21 09/05/21 Range/Units 12:25 18:04 22:10 POC Glucose 188 H 178 H 208 H (70-140) mg/dL 09/06/21 Range/Units 08:09 POC Glucose 204 H (70-140) mg/dL CHARY Results - Last 24 hrs: Microbiology 09/04/21 12:50 Aerobic Blood Culture - Preliminary Blood NO GROWTH AFTER 1 DAY Anaerobic Blood Culture - Preliminary NO GROWTH AFTER 1 DAY 09/04/21 12:56 Aerobic Blood Culture - Preliminary Blood NO GROWTH AFTER 1 DAY Anaerobic Blood Culture - Preliminary NO GROWTH AFTER 1 DAY Med Orders - Current: Current Medications Acetaminophen (Acetaminophen 325 Mg Tab) 650 mg PO Q6H PRN PRN Reason: Pain Last Admin: 09/06/21 08:26 Dose: 650 mg Documented by: Aspirin (Aspirin 81 Mg Tab.Ec) 81 mg PO DAILY [facility] Last Admin: 09/06/21 08:16 Dose: 81 mg Documented by: Dextrose/Water (50% Dextrose In Water 50 Ml Syringe) 50 ml IVPUSH ASDIRECTED PRN PRN Reason: Hypoglycemia Glucagon (Glucagon,Human Recombinant 1 Mg Vial) 1 mg IM ASDIRECTED PRN PRN Reason: Hypoglycemia Insulin Aspart (Insulin Aspart 100 Units/Ml 3 Ml Pen) 0 unit SUBCUT WITHMEALSANDBED [facility]; Protocol Last Admin: 09/06/21 08:17 Dose: 2 unit Documented by: Metformin HCl (Metformin 500 Mg Tab) 1,000 mg PO BIDMEALS [facility] Last Admin: 09/06/21 08:15 Dose: 1,000 mg Documented by: Levothyroxine 88 (Mcg TabletPtom) 88 mcg PO ACBREAKFAST [facility] Last Admin: 09/06/21 07:30 Dose: 88 mcg Documented by: Rosuvastatin 5 Mg (TabletPtom) 5 mg PO DAILY [facility] Last Admin: 09/06/21 08:14 Dose: 5 mg Documented by: Omeprazol 20 Mg Cap. (Cr Ptom) 20 mg PO DAILY [facility] Last Admin: 09/06/21 08:14 Dose: 20 mg Documented by: Ondansetron HCl (Ondansetron 4 Mg/2 Ml Sdv) 4 mg IV Q6H PRN PRN Reason: Nausea/Vomiting Polyethylene Glycol (Polyethylene Glycol 3350 Powder 17 Gm Packet) 17 gm PO DAILY [facility] Last Admin: 09/06/21 08:16 Dose: 17 gm Documented by: Sodium Chloride (Sodium Chloride 0.9% 10 Ml Syringe) 30 ml FLUSH ASDIRECTED [facility] Last Admin: 09/05/21 16:30 Dose: 30 ml Documented by: Tamsulosin HCl (Tamsulosin 0.4 Mg Cap.Er) 0.4 mg PO PCBREAKFAST [facility] Last Admin: 09/06/21 08:15 Dose: 0.4 mg Documented by: Discontinued Medications Diphenhydramine HCl (Diphenhydramine 50 Mg/Ml Sdv) 50 mg IVPUSH ASDIRECTED PRN PRN Reason: hypersensitivity reaction Epinephrine HCl (Epinephrine 1:10,000 1 Mg/10 Ml Syringe) 0.3 mg IM ASDIRECTED PRN PRN Reason: hypersensitivity reaction Famotidine (Famotidine 20 Mg/2 Ml Sdv) 20 mg IVPUSH ASDIRECTED PRN PRN Reason: hypersensitivity reaction Hydromorphone HCl (Hydromorphone 1 Mg/Ml Syringe) 0.5 mg IVPUSH Q2H PRN PRN Reason: Pain (severe 7-10) Last Admin: 09/04/21 21:22 Dose: 0.5 mg Documented by: Sodium Chloride (Normal Saline) 1,000 mls @ 150 mls/hr IV ASDIRECTED JAC Last Admin: 09/05/21 10:07 Dose: 150 mls/hr Documented by: Bamlanivimab 700 mg/Etesevimab 1,400 mg/ Sodium Chloride 310 mls @ 310 mls/hr I V ONETIME ONE Stop: 09/05/21 15:25 Last Admin: 09/05/21 15:15 Dose: 310 mls/hr Documented by: Methylprednisolone Sodium Succinate (Methylprednisolone Sodium Succinate 125 Mg/2 Ml Sdv) 125 mg IVPUSH ASDIRECTED PRN PRN Reason: hypersensitivity reaction Tamsulosin HCl (Tamsulosin 0.4 Mg Cap.Er) 0.4 mg PO ONETIME ONE Stop: 09/04/21 21:01 Last Admin: 09/04/21 21:11 Dose: 0.4 mg Documented by: - Exam Quality Assessment: Reports: Urine Catheter General: Reports: Alert, Oriented Neck: Reports: Supple Lungs: Reports: Clear to Auscultation, Normal Respiratory Effort Cardiovascular: Reports: Regular Rate, Regular Rhythm GI/Abdominal Exam: Normal Bowel Sounds, Soft, Non-Tender (Male) Exam: Deferred, Other (indwelling catheter present. clear light yellow urine. no hematuria, clotting, or sediment. ) Rectal (Males) Exam: Deferred Extremities: No Pedal Edema Skin: Reports: Warm, Dry, Intact Neurological: Reports: No New Focal Deficit Psy/Mental Status: Reports: Alert
[2021-09-06] MEDS ORDERED: Tamsulosin 0.4 MG Cap.ER PO ONE (16:04)
== END 2021-09-06 16:40 | disposition home or self-care (01) ==
LOC: KA.MS 12:06 → UNDOADMOB 12:06 → KA.MS 12:27
PROVIDERS: ADMIT Family Medicine; ATTEND Family Medicine
DX: C25.0 Malignant neoplasm of head of pancreas (principal); U07.1 COVID-19; D72.829 Elevated white blood cell count, unspecified; N17.9 Acute kidney failure, unspecified; E86.0 Dehydration; E11.9 Type 2 diabetes mellitus without complications; E03.9 Hypothyroidism, unspecified; E78.00 Pure hypercholesterolemia, unspecified; R35.0 Frequency of micturition; N13.30 Unspecified hydronephrosis
CPT/HCPCS: 36415; 51702; 74176; 80048; 81001; 82947; 83605; 85025; 87040; 96375; 96376; A9270-GY; G0378; J1170; J1815-GY; J7030; J7050; M0245; Q0245; U0002